=== PATIENT | female | born 2005 | race Caucasian/White ===

== ENCOUNTER 2025-08-20 13:58 | Emergency (ER) | payer SELFPAY ==
[2025-08-20 14:08] VITALS: BP 99/52; PULSE 93; RESP 20; TEMP 36.2; O2SAT 98
[2025-08-20 14:14] LABS: BEDSIDEPREGUCG Negative (Negative)
[2025-08-20 14:23] LABS: Add Urine Microscopic? YES; Appearance Urine Clear (Clear); Glucose Urine UA Negative (Negative); Leukocyte Esterase Ur Negative LEU/UL (Negative); Nitrate Urine Negative (Negative); Non Pathogenic Casts 0-2; Specific Grav Ur 1.016 (1.001-1.035)
[2025-08-20 14:35] LABS: Hematocrit 38.5 % (37.0-47.0); Hemoglobin 13.0 g/dL (12.0-15.0); Immature Granulocyte Percent A 0.3 % (0-0.5); Lymphocytes Absolute Auto 1.39 K/mm3 (0.9-3.2); Mean Corpuscular HGB Conc 33.8 g/dl (32-36); Mean Corpuscular Hemoglobin 30.3 pg (26-34); Mean Corpuscular Volume 89.7 fl (80-100); Nucleated Red Blood Cells Absolute Auto 0.000 K/mm3 (0.0-0.012); Nucleated Red Blood Cells Perc 0.0 % (0.0-0.2); Platelet Count Result 273 k/mm3 (150-375); Red Blood Count 4.29 M/mm3 (4.2-5.4); White Blood Count 7.1 K/mm3 (4.5-10.0)
[2025-08-20 14:55] LABS: Alanine Aminotransferase 16 U/L (6-35); Albumin Level 4.9 g/dL (3.7-5.6); Alkaline Phosphatase 66 U/L (45-116); Anion Gap 9 mmol/L (4-12); Aspartate Amino Transferase 28 U/L (14-36); Bilirubin,Total 1.2 mg/dL (0.2-1.3); Blood Urea Nitrogen 12 mg/dL (8-21); Calcium 9.9 mg/dL (8.9-10.7); Carbon Dioxide 27 mmol/L (22-30); Chloride 101 mmol/L (98-107); Estimated Glomerular Filt Rate > 60; Glucose 92 mg/dL (65-110); Lipase 76 U/L (23-300); Potassium 4.1 mmol/L (3.4-5.0); Sodium 137 mmol/L (134-143); Total Protein 8.5 g/dL (6.3-8.6)
--- NOTE | 2025-08-20 15:31 | ED.ABDPAIN ---
HPI - Abdominal Pain General Chief Complaint: Abdominal Pain Stated Complaint: abd pain Time Seen by Provider: 08/20/25 14:09 Source: patient Mode of arrival: ambulatory Limitations: no limitations History of Present Illness HPI narrative: Patient is a 19-year-old female who presents the ED with report of left lower abdominal pain. Patient reports she is currently on her menstrual cycle, began 3 days ago. She has had this pain in the past with her menstrual cycles, complains of worsening pain over the past 3 days. Present in her left lower abdomen. Has been taking Midol which does provide some relief. Reports nausea, denies vomiting, diarrhea, constipation, difficulty urinating, fevers. Patient reports history of ovarian cyst. She does not currently see an OBGYN. Related Data Allergies Allergy/AdvReac Type Severity Reaction Status Date / Time No Known Allergies Allergy Verified 08/20/25 14:12 Review of Systems Review of Systems: All systems reviewed & are unremarkable except as noted in HPI. All systems reviewed & are unremarkable except as noted in HPI and below Exam Narrative: GENERAL: Well appearing, thin, non-toxic, in no acute distress. HEAD: Normocephalic, atraumatic. RESPIRATORY: Airway patent, respirations nonlabored. Clear to auscultation bilaterally, no rales, rhonchi, wheezing. CARDIOVASCULAR: Regular rate and rhythm without murmurs, rubs, or gallops. ABDOMINAL: Soft, mild tenderness palpation left lower abdomen/left of suprapubic region, nondistended. Normoactive BS. MUSCULOSKELETAL: Moves all extremities. No gross deformities. SKIN: Warm, dry, normal color. NEURO: A&O X3. Speech clear. PSYCHIATRIC: Appropriate mood and affect. Normal interaction. Course Vital Signs Vital signs: Vital Signs Temperature 97.2 F L 08/20/25 14:08 Pulse Rate 93 08/20/25 14:08 Respiratory Rate 20 08/20/25 14:08 Blood Pressure 99/52 L 08/20/25 14:08 Pulse Oximetry 98 08/20/25 14:08 Oxygen Delivery Room Air 08/20/25 14:08 Temperature 97.2 F L 08/20/25 14:08 Pulse Rate 93 08/20/25 14:08 Respiratory Rate 20 08/20/25 14:08 Blood Pressure 99/52 L 08/20/25 14:08 Pulse Oximetry 98 08/20/25 14:08 Oxygen Delivery Room Air 08/20/25 14:08 MDM - Abdominal Pain MDM Narrative Medical decision making narrative: Patient presented to ED with report of left lower abdomen pain x3 days. History of similar pain on menstrual cycle. Currently on menstrual cycle. Vital signs are stable upon arrival. Patient is in no acute distress. Denies current pain. Denies wanting pain medication at this time. Cbc without leukocytosis or anemia. CMP unremarkable. UA with evidence of blood, no signs of infection. Patient is currently on menstrual cycle. Urine is negative. Pelvic ultrasound and CT of abdomen/pelvis were ordered however patient declined this testing. States she does not have insurance into effect until next week. Is not currently having any pain. Does not want any further w/u. Will have patient sign against medical advise as I am unable to rule out a surgical emergency such as ovarian torsion. Patient is agreeable to this. Risks were discussed. Patient agreeable. Paperwork signed. Patient ambulatory out of the facility with a steady gait. Medical Records Attestation: I reviewed the patient's medical records. Lab Data Attestation: I reviewed the patient's lab results. 08/20/25 14:27 08/20/25 14:27 Labs: Lab Results 08/20/25 08/20/25 08/20/25 Range/Units 14:07 14:12 14:27 WBC 7.1 (4.5-10.0) K/mm3 RBC 4.29 (4.2-5.4) M/mm3 Hgb 13.0 (12.0-15.0) g/dL Hct 38.5 (37.0-47.0) % MCV 89.7 (80-100) fl MCH 30.3 (26-34) pg MCHC 33.8 (32-36) g/dl RDW 12.4 (11.5-14.5) % Plt Count 273 (150-375) k/mm3 MPV 9.7 (7.4-10.4) fl Immature Gran % (Auto) 0.3 (0-0.5) % Neut % (Auto) 71.8 (45.5-73.1) % Lymph % (Auto) 19.5 (18.3-44.2) % [place] % (Auto) 7.4 (2.6-8.5) % Eos % (Auto) 0.6 (0-4.4) % Baso % (Auto) 0.4 (0.2-1.2) % Lymph # (Auto) 1.39 (0.9-3.2) K/mm3 [place] # (Auto) 0.5 (0.1-0.6) K/mm3 Eos # (Auto) 0.0 (0-0.3) K/mm3 Baso # (Auto) 0.0 (0.0-0.1) K/mm3 Abs Immat Gran (auto) 0.02 (0.00-0.031) K/mm3 Absolute Neuts (auto) 5.1 (1.3-6.7) K/mm3 Absolute Nucleated RBC 0.000 (0.0-0.012) K/mm3 Nucleated RBC % 0.0 (0.0-0.2) % Sodium 137 (134-143) mmol/L Potassium 4.1 (3.4-5.0) mmol/L Chloride 101 (98-107) mmol/L Carbon Dioxide 27 (22-30) mmol/L Anion Gap 9 (4-12) mmol/L BUN 12 (8-21) mg/dL Creatinine 0.66 L (0.7-1.0) mg/dL Estim Creat Clear Calc Not Reportable Estimated GFR > 60 (59 - ) Glucose 92 (65-110) mg/dL Calcium 9.9 (8.9-10.7) mg/dL Total Bilirubin 1.2 (0.2-1.3) mg/dL AST 28 (14-36) U/L ALT 16 (6-35) U/L Alkaline Phosphatase 66 (45-116) U/L Total Protein 8.5 (6.3-8.6) g/dL Albumin 4.9 (3.7-5.6) g/dL Lipase 76 (23-300) U/L Urine Color Yellow (Yellow) Urine Appearance Clear (Clear) Urine pH 7.0 (5.0-9.0) Ur Specific [place] 1.016 (1.001-1.035) Urine Protein Negative (Negative) mg/dL Urine Glucose (UA) Negative (Negative) mg/dL Urine Ketones Negative (Negative) mg/dL Ur Blood (Man) 3+ H (Negative) Urine Nitrate Negative (Negative) Urine Bilirubin Negative (Negative) Urine Urobilinogen 1.0 (<2.0) mg/dL Leukocyte Esterase Rfl Negative (Negative) FANG/UL Urine RBC >100 H (0-2) /hpf Urine WBC 0-5 (0-3) /hpf Ur Squamous Epith Cells None seen (Few) /hpf Urine Bacteria None seen /hpf Urine Casts 0-2 POC Urine HCG, Qual Negative (Negative) Discharge Plan Discharge Clinical Impression: Left lower quadrant abdominal pain Patient Disposition: Left Against Medical Advice Condition: Guarded Prognosis Patient Language: Bhutanese Follow-up/Referrals: PHYSICIAN,HOURLY SIGN LANGUAGE INTERPRETER [Primary Care Provider, Internal Medicine]
--- NOTE | 2025-08-20 15:59 | PC.NURSE ---
Pt states concern about having CT and US done due to lack of insurance. Requesting scans be done on Friday. Marga STOUT notified
== END 2025-08-20 16:16 | disposition left against medical advice (07) ==
LOC: ANHED 14:32
PROVIDERS: Emergency Medicine; Emergency Provider Physician Assistant
DX: N83.209 Unspecified ovarian cyst, unspecified side (principal)
CPT/HCPCS: 36415; 80053; 81001; 81025; 83690; 85025; 99284

== ENCOUNTER 2025-08-21 10:26 | Emergency (ER) | payer SELFPAY ==
--- NOTE | ~2025-08-21 | US_ITS ---
EXAMINATION: US transvaginal, 08/21/2025 12:31 CDT HISTORY: L pelvic pain Comparison: None Technique: Mejias-scale and color Doppler images were obtained. Findings: Uterus: Uterus 7.6 x 3.7 x 5.6 cm, anteverted. . Endometrium 2.5 mm. Right Ovary:Right ovary 1.7 x 2.4 x 2.8 cm, no adnexal mass, normal flow. Left Ovary: Left ovary 2.6 x 1.6 x 2.9 cm, no adnexal mass, normal flow. Free Fluid: Minimal free fluid. Impression: No acute abnormality. Reviewed, dictated and finalized at location P. Impression: No acute abnormality.
--- OUTSIDE RECORDS SUMMARY | 2025-08-21 10:28 | XMS_ITS | Clinical Summary ---
Author Organization [facility] Address [address] [place] [address] Care Team Providers Care Ethologist Name Role Phone Bebeto Hays MD Primary Care Provider [phone] Allergies No known active allergies Medications sertraline (ZOLOFT) 50 mg tablet Take 50 mg by mouth daily Active FLUoxetine 10 mg capsule Take 10 mg by mouth daily 2 Active prazosin (MINIPRESS) 2 mg capsule TAKE 1 CAPSULE BY MOUTH EVERYDAY AT BEDTIME 2 Active FLUoxetine (PROzac) 20 mg capsule Take by mouth daily 2 Active ondansetron ODT (ZOFRAN-ODT) 4 mg disintegrating tablet Take 1 tablet (4 mg total) by mouth every 8 (eight) hours as needed for nausea or vomiting 12 tablet 3 Active senna-docusate (PERICOLACE) 8.6-50 mg Take 1 tablet by mouth daily 14 tablet 4 Active Active Problems Problem Noted Date Diagnosed Date Eating disorder 07/25/2022 Surgical History Surgery Date Site/Laterality Comments NO PAST SURGERIES Medical History Medical History Date Comments Anxiety History of eating disorder Depression Family History Medical History Relation Name Comments Endometriosis Mother Relation Name Status Comments Mother Social History Tobacco Use Types Packs/Day Years Used Date Smoking Tobacco: Never Assessed PHQ-2 Answer Date Recorded PHQ-2 TOTAL SCORE 0 02/06/2023 Personal Safety Answer Date Recorded Have you ever been in or are you currently in a harmful physical or emotional relationship or is someone making you feel afraid or unsafe? Denies 11/08/2024 Comments No Sex and Gender Information Value Date Recorded Sex Assigned at Not on file Legal Sex Female 7:33 PM BOOKING OFFICER Gender Identity Not on file Sexual Orientation Not on file Obstetrics History Growth Chart Information Age Height Weight [id number]-[id number] th Percentile BMI Percentile Head Circum Head Circum Percentile Date 19 years 165.1 cm (5' 5) 2023 17 years 54.1 kg (119 lb 4.3 oz) 2022 17 years 154.7 cm (5' 0.91) 50.9 kg (112 lb 3.4 oz) 52.65%* 2022 17 years 155.1 cm (5' 1.06) 51.1 kg (112 lb 10.5 oz) 54.07%* 2021 16 years 155.2 cm (5' 1.1) 48.3 kg (106 lb 7.7 oz) 39.19%* 2021 16 years 155.4 cm (5' 1.18) 47.7 kg (105 lb 2.6 oz) 35.85%* 2021 16 years 155.4 cm (5' 1.18) 45.2 kg (99 lb 10.4 oz) 22.09%* 2021 16 years 155.1 cm (5' 1.06) 46.1 kg (101 lb 10.1 oz) 28.50%* 2021 16 years 154.9 cm (5' 1) 45.9 kg (101 lb 3.1 oz) 28.17%* 2021 12 years 42 kg (92 lb 9.5 oz) 2016 11 years 41.6 kg (91 lb 11.4 oz) 2016 7 years 20.3 kg (44 lb 12.1 oz) 2012 * [facility] (Girls, 2-20 Years) Last Filed Vital Signs Vital Sign Reading Time Taken Comments Blood Pressure 109/53 11/08/2024 2:17 PM BOOKING OFFICER Pulse 72 11/08/2024 2:17 PM BOOKING OFFICER Temperature 37 C (98.6 F) 11/08/2024 11:49 AM BOOKING OFFICER Respiratory Rate 16 11/08/2024 2:17 PM BOOKING OFFICER Oxygen Saturation 100% 11/08/2024 2:17 PM BOOKING OFFICER Inhaled Oxygen Concentration - - Weight 54.1 kg (119 lb 4.3 oz) 08/27/2023 5:20 A M CDT Height 165.1 cm (5' 5) 11/08/2024 11:49 AM BOOKING OFFICER Body Mass Index - - Plan of Treatment Health Maintenance Due Date Last Done Comments Hepatitis C Screening 2005 DTaP/Tdap/Td Vaccine (1 - Tdap) 2016 Varicella Vaccines (1 of 2 - 13+ 2-dose series) 2018 HPV Vaccines (1 - 3-dose series) 2020 Meningococcal B Vaccine (1 of 2 - Standard) 2021 Hepatitis B Screening 2023 Regular Well Visit/Exam 18-64 2023 Depression Screening 02/07/2024 02/06/2023, 02/06/2023, 09/26/2022, Additional history exists Influenza Vaccine (#1) 2025 Meningococcal Vaccine Aged Out No loan nicky eligible based on patient's age to complete this topic Pneumococcal vaccine <65 Aged Out No longer eligible based on patient's age to complete this topic Insurance [facility] Care Teams Ethologist Relationship Specialty Start Date End Date Bebeto Hays MD PCP - General Pediatrics 03/14/22
--- OUTSIDE RECORDS SUMMARY | 2025-08-21 10:28 | XMS_ITS | Patient Health Record ---
Author Organization [facility] Address [address] [place] [address] Care Team Providers Care Cath Lab Radiology Technician Name Role Phone Tammie Quinones Primary Care Provider [phone] Allergies No Known Allergies Reason For Referral No Information Medications Medication SIG (Take, Route, Fr equency, Duration) Notes Start Date End Date Status traZODone HCl 50 MG 0.5-1 tablet at bedt demond as needed Orally Once a day; Duration: 30 days Active hydrOXYzine HCl 10 MG 1 tablet as needed Orally three times a day; Duration: 30 days Active Mirtazapine 15 MG 1 tablet at bedtime Orally Once a day; Duration: 30 days Ac tive hydrOXYzine HCl 50 MG 1 tablet at bedtim e as needed Orally Once a day; Duration: 30 days Active ARIPiprazole 5 MG 1 tablet Orally Once a day at bedtime; Duration: 30 days Activ e cloNIDine HCl 0.1 MG 1 tablet at bedtime Orally Once a day; Duration: 30 days Ac tive Social History Tobacco Use: Social History Observation Description Date Details (start date - stop date) Never Smoker NA - NA Dont use, Tobacco Use/Smoking Question Answer Notes Are you a nonsmoker PRAPARE Question Answer Notes Date Completed/Updated: 07/07/2023 What is your current housing situation? I have housing Are you worried about losing your housing? No What is the highest level of school that you have finished? Less than a high school degree Senior in Highschool What is your current work situation? Otherwise unemployed but not seeking work (ex. student, retired, disabled, unpaid primary healthcare analyst) Senior in highschool How often do you see or talk to people that you care about and feel close to? (For example: talking to friends on the phone, visiting friends or family, going to scientology or club meetings) Spent summer working more than socialize. has impacted depression. How stressed are you? Stress is when someone feels tense, nervous, anxious, or can\t sleep at night because their mind is troubled Stressor is school: anxiety at school, struggles to raise hand due to anxiety Do you feel physically and emotionally safe where you currently live? Client see's therapist at school and will start back up again in the school year PRAPARE Score: 4 Problems Problem Type SNOMED Code ICD Code Onset Dates Problem Status W/U Status Risk Notes Problem Disruptive mood dysregulation disorder (797767677) Disruptive mood dysregulation disorder (F34.81) Active confirmed Plan Of Treatment No Information Insurance Providers Payer Name Payer Address Payer Phone Subscriber Number Group Number Insured Name Patient Relationship to Insured Coverage Start Date Coverage End Date [facility] Attn Claims Department [address] [place] [id number] Cira Ashley Self - patient is the insured 0 Medical (General) History Surgical History Surgery Date(Month/Year) Hospitalization History Reason Date(Month/Year)
[2025-08-21 11:20] VITALS: BP 124/62; PULSE 50; RESP 20; TEMP 36.9; O2SAT 100
--- NOTE | 2025-08-21 11:28 | ED_ITS ---
HPI - Abdominal Pain General Chief Complaint: Abdominal Pain Stated Complaint: abd pain Time Seen by Provider: 08/21/25 11:20 History of Present Illness HPI narrative: Patient has had intermittent pain to her left pelvic abdomen, started her menstrual cycle couple days ago, was seen here last night and normal labs, declined imaging at that time, came back today because she had another severe episode of the pain, accompanied with some nausea, has now largely subsided. Related Data Allergies Allergy/AdvReac Type Severity Reaction Status Date / Time No Known Allergies Allergy Verified 08/21/25 10:28 Review of Systems Review of Systems: All systems reviewed & are unremarkable except as noted in HPI and below Exam Narrative: EXAMINATION OF ORGAN SYSTEMS/BODY AREAS: Constitutional: Vital signs per nursing GENERAL:[No acute distress, non-toxic appearing.] HEAD: Normal with no signs of head trauma. EYES: EOMI, conjunctiva normal ENT: Hearing grossly intact LUNGS: Nonlabored breathing. HEART: [Regular rate and rhythm] ABD: [Soft], very minimally tender to palpation left lower abdomen EXT: Normal range of motion SKIN: [No rashes or lesions.] NEURO: [Alert and oriented x 3. No gross focal sensory or strength deficits.] PSYCH: Normal affect Course Vital Signs Vital signs: Vital Signs Temperature 98.4 F 08/21/25 11:20 Pulse Rate 50 L 08/21/25 11:20 Respiratory Rate 20 08/21/25 11:20 Blood Pressure 124/62 08/21/25 11:20 Pulse Oximetry 100 08/21/25 11:20 Oxygen Delivery Room Air 08/21/25 11:20 Temperature 98.4 F 08/21/25 11:20 Pulse Rate 50 L 08/21/25 11:20 Respiratory Rate 20 08/21/25 11:20 Blood Pressure 124/62 08/21/25 11:20 Pulse Oximetry 100 08/21/25 11:20 Oxygen Delivery Room Air 08/21/25 11:20 MDM - Abdominal Pain MDM Narrative Medical decision making narrative: Patient presenting here with left pelvic pain, had labs done yesterday that were unremarkable, she does occasionally have episodes of severe pain does right now and feels like a slight pressure, no significant pain. Declined pain medicine at this time; would prefer ultrasound at this time over CT. Transvaginal ultrasound obtained without acute abnormality, there is normal color flow bilaterally. On re-evaluation, she is in no distress. Discussed with patient the likelihood of this being a possible ruptured cyst, have given her follow-up information OBGYN, NSAIDs as needed, with strict return precautions and patient agreeable to this plan Imaging Data Radiologist's impression: ITS Impressions Transvaginal US 08/21/25 14:07 Impression: No acute abnormality. Discharge Plan Discharge Clinical Impression: Ovarian cyst Patient Disposition: Home Condition: Stable Instructions: Ruptured Ovarian Cyst (ED) Additional Instructions: Please follow-up with OBGYN, if your pain returns or worsens, you can come back to the emergency room. Patient Language: Kazakh Prescriptions: New ibuprofen 600 mg tablet 600 mg PO TID PRN (Reason: fever or pain) Qty: 30 0RF Follow-up/Referrals: Hamzah Gonzales MD [Physician, EMERGENCY SERVICES DISPATCHER] - 2 Days PHYSICIAN,GROUND DEFENCE OFFICER [Primary Care Provider, Internal Medicine]
== END 2025-08-21 13:44 | disposition home or self-care (01) ==
PROVIDERS: Emergency Provider Emergency Medicine
DX: N83.209 Unspecified ovarian cyst, unspecified side (principal)
CPT/HCPCS: 76830; 99284